=== PATIENT | female | born 1970 | race Caucasian/White ===

== ENCOUNTER 2018-08-26 13:44 | Emergency (ER) ==
--- OUTSIDE RECORDS SUMMARY | 2018-08-26 13:46 | XMS REPORT | Continuity of Care Document ---
Author Author Emilio ford Organization Interface Address Unknown Phone Unavailable Problems Problem Status Onset Date Classification Date Reported Comments Source M79.647 - PAIN IN LEFT FINGER(S) Active 04/11/2017 [facility] UNK Active 04/23/2015 [facility] Gallstones [facility] Medication Details Route Status Patient Instructions Ordering Provider Order Date Source Metoprolol 1 mg, Route: IVP, Q5Min, Dosing Weight 81.08, kg, PRN Other -See Comment, Start date: 04/28/15 12:41:00, Duration: 5 doses or times, Stop date: Limited # of times Inactive 04/28/2015 [facility] Oxycodone 5 mg, Route: PO, Drug form: TAB, Q4H, Dosing Weight 81.08, kg, PRN Pain Score 4-6, Start date: 04/28/15 12:41:00, Duration: 30 day, Stop date: 05/28/15 12:40:00 Inactive 04/28/2015 [facility] Glycopyrrolate 0.2 mg, Route: IVP, Q5Min, Dosing Weight 81.08, kg, PRN Bradycardia, Start date: 04/28/15 12:41:00, Duration: 3 doses or times, Stop date: Limited # of times Inactive 04/28/2015 [facility] Diphenhydramine 12.5 mg, Route: IVP, Drug form: INJ, Q6H, Dosing Weight 81.08, kg, PRN Itching, Start date: 04/28/15 12:41:00, Duration: 30 day, Stop date: 05/28/15 12:40:00 Inactive 04/28/2015 [facility] Hydralazine 10 mg, Route: IVP, Q20Min, Dosing Weight 81.08, kg, PRN Elevated BP, Start date: 04/28/15 12:41:00, Duration: 2 doses or times, Stop date: Limited # of times Inactive 04/28/2015 [facility] Ketorolac 30 mg, Route: IVP, ONCE, Dosing Weight 81.08, kg, Start date: 04/28/15 12:41:00, Duration: 1 doses or times, Stop date: 04/28/15 12:41:00 Inactive 04/28/2015 [facility] Naloxone 0.04 mg, Route: IVP, Q2MIN, Dosing Weight 81.08, kg, PRN Narcotic Reversal, Start date: 04/28/15 12:41:00, Duration: 8 doses or times, Stop date: Limited # of times Inactive 04/28/2015 [facility] Flumazenil 0.2 mg, Route: IVP, PRN, Dosing Weight 81.08, kg, PRN Benzodiazepine Reversal, Initial dose, Start date: 04/28/15 12:41:00, Duration: 30 day, Stop date: 05/28/15 12:40:00 Inactive 04/28/2015 [facility] Meperidine 12.5 mg, Route: IVP, Q30Min, Dosing Weight 81.08, kg, PRN Other -See Comment, For shivering, Start date: 04/28/15 12:41:00, Duration: 2 doses or times, Stop date: Limited # of times Inactive 04/28/2015 [facility] Hydromorphone 0.5 mg, Route: IVP, Q5Min, Dosing Weight 81.08, kg, PRN Pain Score 7-10, Start date: 04/28/15 12:41:00, Duration: 4 doses or times, Stop date: Limited # of times Inactive 04/28/2015 [facility] Fentanyl 25 microgram, Route: IVP, Q5Min, Dosing Weight 81.08, kg, PRN Pain Score 4-6, Start date: 04/28/15 12:41:00, Duration: 4 doses or times, Stop date: Limited # of times Inactive 04/28/2015 [facility] Morphine 2 mg, Route: IVP, Q5Min, Dosing Weight 81.08, kg, PRN Pain Score 4-6, Start date: 04/28/15 12:41:00, Duration: 5 doses or times, Stop date: Limited # of times Inactive 04/28/2015 [facility] Promethazine 6.25 mg, Route: IVPB, ONCE, Dosing Weight 81.08, kg, PRN Nausea & Vomiting, Start date: 04/28/15 12:41:00 Inactive 04/28/2015 [facility] Ondansetron 4 mg, Route: IVP, ONCE, Dosing Weight 81.08, kg, PRN Nausea & Vomiting, Start date: 04/28/15 12:41:00 Inactive 04/28/2015 [facility] Acetaminophen 300 MG / Codeine Phosphate 30 MG Oral Tablet [Tylenol with Codeine #3] 1 tab, PO, Q6H, PRN for pain, # 15 tab, 0 Refill(s) No Longer Active 04/28/2015 [facility] Calcium Chloride 0.0014 MEQ/ML / Potassium Chloride 0.004 MEQ/ML / Sodium Chloride 0.103 MEQ/ML / Sodium Lactate 0.028 MEQ/ML Injectable Solution 1,000 mL, Rate: 25 ml/hr, Infuse over: 40 hr, Route: IV, Dosing Weight 81.08 kg, Total Volume: 1,000, Start date: 04/27/15 8:19:00, Duration: 2 day, Stop date: 04/29/15 8:18:00 No Longer Active 04/27/2015 [facility] Calcium Chloride 0.0014 MEQ/ML / Potassium Chloride 0.004 MEQ/ML / Sodium Chloride 0.103 MEQ/ML / Sodium Lactate 0.028 MEQ/ML Injectable Solution 1,000 mL, Rate: 25 ml/hr, Infuse over: 40 hr, Route: IV, Dosing Weight 81.08 kg, Total Volume: 1,000, Start date: 04/27/15 8:18:00, Duration: 2 day, Stop date: 04/29/15 8:17:00 No Longer Active 04/27/2015 [facility] 84 HR Estradiol 0.83086 MG/HR Transdermal Patch [Minivelle] 1 patch, TOP, 0 Refill(s) Active 04/24/2015 [facility] progesterone 100 mg oral capsule 100 mg=1 cap, PO, Daily, # 30 cap, 1 Refill(s) Active 04/24/2015 [facility] Allergies, Adverse Reactions, Alerts Substance Category Reaction Severity Reaction type Status Date Reported Comments Source Immunizations Immunization Date Given Site Status Last Updated Comments Source Results Order Name Results Value Reference Range Date Interpretation Comments Source Spine lumbar series DX Spine lumbar series DX EXAM: XR LUMBAR SPINE 5 VIEWS DATE: 04/11/2017 4:05 PM CDT INDICATION: - M54.5 Low back pain COMPARISON: None available TECHNIQUE: AP, lateral, coned lateral, LPO and RPO radiographs of the lumbar spine FINDINGS: 5 nonrib bearing, lumbar-type vertebral bodies are present. Vertebral body heights are preserved. Mild disc height loss is noted at L4-L5 and L5-S1. Apparent disc height loss at T12-L1 is likely projectional. Please see x-ray thoracic spine performed concomitantly. Small anterior osteophytes are present at the thoracolumbar junction. Mild facet arthropathy is present in the lower lumbar spine. No soft tissue abnormality is identified. Surgical clips project over the expected location of the gallbladder fossa. IMPRESSION: 1. Moderate degenerative disc disease at the lumbosacral junction. 2. Mild lumbosacral facet arthropathy. 04/11/2017 - - This report was dictated by a College Athlete/Fellow. I have personally reviewed the images as well as the Resident's interpretation and agree with the findings. Read by: Yifan Schwartz MD Resident: Yifan Schwartz MD Dictated Date/time: 04/12/17 08:30 Electronically Signed by: Shane Ortega MD 04/12/17 16:26 FINAL REPORT [facility] Spine thoracic 3 views DX Spine thoracic 3 views DX EXAM: XR THORACIC SPINE 2 VIEWS DATE: 04/11/2017 4:06 PM CDT INDICATION: - M54.5 Low back pain COMPARISON: None available TECHNIQUE: AP and lateral radiographs of the thoracic spine FINDINGS: Vertebral body heights, disk heights and alignment are preserved. Small anterior osteophytes are noted in the lower cervical spine. No soft tissue abnormality is identified. Surgical clips project over the gallbladder fossa. IMPRESSION: 1. No acute abnormality. 2. Mild lower cervical spine degenerative disease. 04/11/2017 - - This report was dictated by a College Athlete/Fellow. I have personally reviewed the images as well as the Resident's interpretation and agree with the findings. Read by: Yifan Schwartz MD Resident: Yifan Schwartz MD Dictated Date/time: 04/12/17 08:33 Electronically Signed by: Shane Ortega MD 04/12/17 16:26 FINAL REPORT [facility] Hand 3 views Bilateral DX Hand 3 views Bilateral DX EXAM: XR BILATERAL HAND 3 VIEWS DATE: 04/11/2017 4:06 PM CDT INDICATION: - M79.645 Pain in left finger(s) COMPARISON: None available TECHNIQUE: PA, lateral and oblique radiographs of the bilateral hands. FINDINGS: No acute fracture or malalignment is identified. Joint spaces and bone mineral density are preserved. A punctate capsular calcification is noted at the interphalangeal joint of the thumb. No soft tissue abnormality is identified. IMPRESSION: No acute abnormality. 04/11/2017 - - This report was dictated by a College Athlete/Fellow. I have personally reviewed the images as well as the Resident's interpretation and agree with the findings. Read by: Yifan Schwartz MD Resident: Yifan Schwartz MD Dictated Date/time: 04/12/17 08:38 Electronically Signed by: Shane Ortega MD 04/12/17 16:29 FINAL REPORT [facility] CHEM PANEL Amylase Lvl 44 unit/L 25 - 115 04/24/2015 [facility] CHEM PANEL B/C Ratio 14 6 - 25 04/24/2015 [facility] CHEM PANEL Globulin 3.2 g/dL 2.0 - 4.0 04/24/2015 [facility] CHEM PANEL AGAP 10.1 meq/L 10.0 - 20.0 04/24/2015 [facility] CHEM PANEL A/G Ratio 1.2 0.7 - 1.6 04/24/2015 [facility] PANEL eGFR 89 mL/min/1.73m2 04/24/2015 Result Comment: The eGFR is calculated using the CKD-EPI formula. In most young, healthy individuals the eGFR will be >90 mL/min/1.73m2. The eGFR declines with age. An eGFR of 60-89 may be normal in some populations, particularly the elderly, for whom the CKD-EPI formula has not been extensively validated. Use of the eGFR is not recommended in the following populations: Individuals with unstable creatinine concentrations, including patients and those with serious co-morbid conditions. Patients with extremes in muscle mass or diet. The data above are obtained from the National Kidney Disease Education Program (NKDEP) which additionally recommends that when the eGFR is used in patients with extremes of body mass index for purposes of drug dosing, the eGFR should be multiplied by the estimated BMI. [facility] CHEM PANEL Glucose Lvl 81 mg/dL 70 - 99 04/24/2015 [facility] CHEM PANEL BUN 11 mg/dL 7 - 22 04/24/2015 [facility] PANEL Creatinine Lvl 0.8 mg/dL 0.5 - 1.4 04/24/2015 [facility]M PANEL Bili Total 0.4 mg/dL 0.2 - 1.3 04/24/2015 [facility]M PANEL Calcium Lvl 9.1 mg/dL 8.5 - 10.5 04/24/2015 [facility] PANEL Total Protein 7.1 g/dL 6.4 - 8.4 04/24/2015 [facility]M PANEL CO2 28 meq/L 24 - 32 04/24/2015 [facility] PANEL ALT 23 unit/L 0 - 65 04/24/2015 [facility] PANEL Alk Phos 59 unit/L 39 - 136 04/24/2015 [facility]M PANEL Albumin Lvl 3.9 g/dL 3.5 - 5.0 04/24/2015 [facility]M PANEL AST 14 unit/L 0 - 37 04/24/2015 [facility]M PANEL Chloride Lvl 105 meq/L 95 - 109 04/24/2015 [facility] PANEL Potassium Lvl 4.1 meq/L 3.5 - 5.1 04/24/2015 [facility]M PANEL Sodium Lvl 139 meq/L 135 - 145 04/24/2015 [facility] HEMATOLOGY Segs 57.5 % 45.0 - 75.0 04/24/2015 [facility] HEMATOLOGY Monocytes # 0.5 K/CMM 0.0 - 0.8 04/24/2015 [facility] HEMATOLOGY Eosinophils # 0.1 K/CMM 0.0 - 0.5 04/24/2015 [facility] HEMATOLOGY Basophils # 0.1 K/CMM 0.0 - 0.2 04/24/2015 [facility] HEMATOLOGY Eosinophils 1.9 % 0.0 - 4.0 04/24/2015 [facility] HEMATOLOGY Monocytes 8.7 % 2.0 - 12.0 04/24/2015 [facility] HEMATOLOGY Lymphocytes # 1.8 K/CMM 1.0 - 5.5 04/24/2015 [facility] HEMATOLOGY Segs-Bands # 3.4 K/CMM 1.5 - 8.1 04/24/2015 [facility] HEMATOLOGY Basophils 0.9 % 0.0 - 1.0 04/24/2015 [facility] HEMATOLOGY Lymphocytes 31.0 % 20.0 - 40.0 04/24/2015 [facility] HEMATOLOGY MPV 8.2 fL 7.4 - 10.4 04/24/2015 [facility] HEMATOLOGY MCV 94.0 fL 80.0 - 98.0 04/24/2015 [facility] HEMATOLOGY MCH 32.0 pg 27.0 - 31.0 04/24/2015 [facility] HEMATOLOGY Platelet 170 K/CMM 133 - 450 04/24/2015 [facility] HEMATOLOGY RDW 13.3 % 11.5 - 14.5 04/24/[address] [facility] MCHC 34.1 g/dL 32.0 - 36.0 04/24/2015 [facility] HEMATOLOGY Hgb 12.1 g/dL 12.0 - 16.0 04/24/2015 [facility] HEMATOLOGY RBC 3.79 M/CMM 4.20 - 5.40 04/24/2015 [facility] HEMATOLOGY WBC 5.9 K/CMM 3.7 - 10.4 04/24/[address] [facility] Hct 35.6 % 36.0 - 48.0 04/24/2015 [facility] URINE AND STOOL UA Urobilinogen <=1.0 mg/dL 0.1 - 1.0 04/24/2015 [facility] URINE AND STOOL UA Color Ltyellow 04/24/2015 [facility] URINE AND STOOL UA Blood Negative (04/24/15 11:24 AM) Negative 04/24/2015 [facility] URINE AND STOOL UA Bili Negative *NA* (04/24/15 11:24 AM) Negative 04/24/2015 [facility] URINE AND STOOL UA Ketones Negative mg/dL Negative mg/dL 04/24/2015 [facility] URINE AND STOOL UA Glucose Negative mg/dL Negative mg/dL 04/24/2015 [facility] URINE AND STOOL UA WBC null 0 - 5 04/24/2015 [facility] URINE AND STOOL UA Leuk Est Negative (04/24/15 11:24 AM) Negative 04/24/2015 [facility] URINE AND STOOL UA Nitrite Negative (04/24/15 11:24 AM) Negative 04/24/2015 [facility] URINE AND STOOL UA Sq Epi Occasional /LPF Few /LPF 04/24/2015 [facility] URINE AND STOOL UA Protein Negative mg/dL Negative mg/dL 04/24/2015 [facility] URINE AND STOOL UA pH 6.0 5.0 - 8.0 04/24/2015 [facility] URINE AND STOOL UA Spec Grav 1.003 <=1.030 04/24/2015 [facility] URINE AND STOOL UA Turbidity Clear (04/24/15 11:24 AM) Clear 04/24/2015 [facility] Vital Signs Vital Sign Value Date Comments Source Respitory Rate 18 04/28/2015 [facility] Systolic (mm Hg) 100 04/28/2015 [facility] Diastolic (mm Hg) 60 04/28/2015 [facility] Respitory Rate 18 04/28/2015 [facility] Systolic (mm Hg) 101 04/28/2015 [facility] Diastolic (mm Hg) 63 04/28/2015 [facility] Systolic (mm Hg) 99 04/28/2015 [facility] Diastolic (mm Hg) 58 04/28/2015 [facility] Respitory Rate 18 04/28/2015 [facility] Heart Rate 69 04/28/2015 [facility] Heart Rate 70 04/24/2015 [facility] Temperature Oral (F) 98.2 F 04/24/2015 [facility] Height 167.64 cm 04/24/2015 [facility] BMI Calculated 28.85 04/24/2015 [facility] Weight 81.08 04/24/2015 [facility] Encounters Location Location Details Encounter Type Encounter Number Reason For Visit Attending Provider ADM Date DC Date Status Source [facility] OBS Day Surgery [id number] Felipe Harrison 04/28/2015 04/28/2015 [facility] [id number] Liu David 04/11/2017 04/12/2017 [facility] Procedures Procedure Code Date Perfomer Comments Source section [id number] [facility] Operation [id number] [facility] section [id number] [facility] Operation [id number] [facility]
--- OUTSIDE RECORDS SUMMARY | 2018-08-26 13:47 | XMS REPORT | Summary of Care ---
Author Author [facility] Organization [facility] Address Unknown Phone Unavailable Encounter ALLA Tsang(SYLVESTER) [id number] Date(s): 04/28/15 - 04/28/15 [facility] [address] [place] [address]- [phone] Discharge Disposition: Home Attending Physician: Felipe Harrison MD Referring Physician: Felipe Harrison MD Vital Signs 1 2 3 Most recent to oldest [Reference Range]: 167.64 cm (04/24/15 10:50 AM) Height 1 2 3 Most recent to oldest [Reference Range]: 98.2 DegF (04/24/15 11:24 AM) Temperature Oral [96.4-99.1 DegF] 1 2 3 Most recent to oldest [Reference Range]: 100/60 mmHg (04/28/15 2:00 PM) 101/63 mmHg (04/28/15 1:45 PM) 99/58 mmHg (04/28/15 1:30 PM) Blood Pressure [90-140/60-90 mmHg] 1 2 3 Most recent to oldest [Reference Range]: 18 BRMIN (04/28/15 2:00 PM) 18 BRMIN (04/28/15 1:45 PM) 18 BRMIN (04/28/15 1:30 PM) Respiratory Rate [14-20 BRMIN] 1 2 3 Most recent to oldest [Reference Range]: 69 bpm (04/28/15 10:34 AM) 70 bpm (04/24/15 11:24 AM) Peripheral Pulse Rate [60-100 bpm] 1 2 3 Most recent to oldest [Reference Range]: 81.08 kg (04/24/15 10:50 AM) Weight 1 2 3 Most recent to oldest [Reference Range]: 28.85 m2 (04/24/15 10:50 AM) Body Mass Index Problem List Condition Effective Dates Status Health Status Informant Gallstones(Confirmed Active ) Allergies, Adverse Reactions, Alerts Substance Reaction Severity Status NKDA Active Medications diphenhydrAMINE 12.5 mg, Route: IVP, Drug form: INJ, Q6H, Dosing Weight 81.08, kg, PRN Itching, Start date: 04/28/15 12:41:00, Duration: 30 day, Stop date: 05/28/15 12:40:00 Start Date: 04/28/15 Stop Date: 04/28/15 Status: Discontinued fentaNYL 25 microgram, Route: IVP, Q5Min, Dosing Weight 81.08, kg, PRN Pain Score 4-6, St art date: 04/28/15 12:41:00, Duration: 4 doses or times, Stop date: Limited # of times Start Date: 04/28/15 Stop Date: 04/28/15 Status: Discontinued fentaNYL 50 microgram, Route: IVP, Q5Min, Dosing Weight 81.08, kg, PRN Pain Score 7-10, S tart date: 04/28/15 12:41:00, Duration: 2 doses or times, Stop date: Limited # o f times Start Date: 04/28/15 Stop Date: 04/28/15 Status: Discontinued flumazenil 0.2 mg, Route: IVP, PRN, Dosing Weight 81.08, kg, PRN Benzodiazepine Reversal, I nitial dose, Start date: 04/28/15 12:41:00, Duration: 30 day, Stop date: 5 12:40:00 Start Date: 04/28/15 Stop Date: 04/28/15 Status: Discontinued glycopyrrolate 0.2 mg, Route: IVP, Q5Min, Dosing Weight 81.08, kg, PRN Bradycardia, Start date: 04/28/15 12:41:00, Duration: 3 doses or times, Stop date: Limited # of times Start Date: 04/28/15 Stop Date: 04/28/15 Status: Discontinued hydrALAZINE 10 mg, Route: IVP, Q20Min, Dosing Weight 81.08, kg, PRN Elevated BP, Start date: 04/28/15 12:41:00, Duration: 2 doses or times, Stop date: Limited # of times Start Date: 04/28/15 Stop Date: 04/28/15 Status: Discontinued hydromorphone 0.5 mg, Route: IVP, Q5Min, Dosing Weight 81.08, kg, PRN Pain Score 7-10, Start d ate: 04/28/15 12:41:00, Duration: 4 doses or times, Stop date: Limited # of time s Start Date: 04/28/15 Stop Date: 04/28/15 Status: Discontinued ketOROLAC 30 mg, Route: IVP, ONCE, Dosing Weight 81.08, kg, Start date: 04/28/15 12:41:00, Duration: 1 doses or times, Stop date: 04/28/15 12:41:00 Start Date: 04/28/15 Stop Date: 04/28/15 Status: Discontinued Lactated Ringers Injection IV 1,000 mL 1,000 mL, Rate: 25 ml/hr, Infuse over: 40 hr, Route: IV, Dosing Weight 81.08 kg, Total Volume: 1,000, Start date: 04/27/15 8:19:00, Duration: 2 day, Stop date: 04/29/15 8:18:00 Start Date: 04/27/15 Stop Date: 04/28/15 Status: Discontinued Lactated Ringers Injection IV 1,000 mL 1,000 mL, Rate: 25 ml/hr, Infuse over: 40 hr, Route: IV, Dosing Weight 81.08 kg, Total Volume: 1,000, Start date: 04/27/15 8:18:00, Duration: 2 day, Stop date: 04/29/15 8:17:00 Start Date: 04/27/15 Stop Date: 04/28/15 Status: Discontinued meperidine 12.5 mg, Route: IVP, Q30Min, Dosing Weight 81.08, kg, PRN Other -See Comment, Fo r shivering, Start date: 04/28/15 12:41:00, Duration: 2 doses or times, Stop ericka e: Limited # of times Start Date: 04/28/15 Stop Date: 04/28/15 Status: Discontinued metoprolol 1 mg, Route: IVP, Q5Min, Dosing Weight 81.08, kg, PRN Other -See Comment, Start date: 04/28/15 12:41:00, Duration: 5 doses or times, Stop date: Limited # of cirilo es Start Date: 04/28/15 Stop Date: 04/28/15 Status: Discontinued Minivelle 0.0375 mg/24 hours twice weekly transdermal film, extended release 1 patch, TOP, 0 Refill(s) Start Date: 04/24/15 Status: Ordered morphine Sulfate 2 mg, Route: IVP, Q5Min, Dosing Weight 81.08, kg, PRN Pain Score 4-6, Start date : 04/28/15 12:41:00, Duration: 5 doses or times, Stop date: Limited # of times Start Date: 04/28/15 Stop Date: 04/28/15 Status: Discontinued morphine Sulfate 4 mg, Route: IVP, Q5Min, Dosing Weight 81.08, kg, PRN Pain Score 7-10, Start ericka e: 04/28/15 12:41:00, Duration: 3 doses or times, Stop date: Limited # of times Start Date: 04/28/15 Stop Date: 04/28/15 Status: Discontinued naloxone 0.04 mg, Route: IVP, Q2MIN, Dosing Weight 81.08, kg, PRN Narcotic Reversal, Star t date: 04/28/15 12:41:00, Duration: 8 doses or times, Stop date: Limited # of t imes Start Date: 04/28/15 Stop Date: 04/28/15 Status: Discontinued ondansetron 4 mg, Route: IVP, ONCE, Dosing Weight 81.08, kg, PRN Nausea & Vomiting, Start date: 04/28/15 12:41:00 Start Date: 04/28/15 Stop Date: 04/28/15 Status: Discontinued oxyCODONE 5 mg, Route: PO, Drug form: TAB, Q4H, Dosing Weight 81.08, kg, PRN Pain Score 4- 6, Start date: 04/28/15 12:41:00, Duration: 30 day, Stop date: 05/28/15 12:40:00 Start Date: 04/28/15 Stop Date: 04/28/15 Status: Discontinued oxyCODONE 10 mg, Route: PO, Drug form: TAB, Q4H, Dosing Weight 81.08, kg, PRN Pain Score 7 -10, Start date: 04/28/15 12:41:00, Duration: 30 day, Stop date: 05/28/15 12:40: 00 Start Date: 04/28/15 Stop Date: 04/28/15 Status: Discontinued progesterone 100 mg oral capsule 100 mg=1 cap, PO, Daily, # 30 cap, 1 Refill(s) Start Date: 04/24/15 Stop Date: 05/24/15 Status: Ordered promethazine 6.25 mg, Route: IVPB, ONCE, Dosing Weight 81.08, kg, PRN Nausea & Vomiting, Start date: 04/28/15 12:41:00 Start Date: 04/28/15 Stop Date: 04/28/15 Status: Discontinued Tylenol with Codeine #3 oral tablet 1 tab, PO, Q6H, PRN for pain, # 15 tab, 0 Refill(s) Start Date: 04/28/15 Stop Date: 04/29/15 Status: Completed Results ELECTROLYTES Most recent to 1 oldest [Reference Range]: Sodium Lvl [135-145 139 mEq/L mEq/L] (04/24/15 11:24 AM) Potassium Lvl 4.1 mEq/L [3.5-5.1 mEq/L] (04/24/15 11:24 AM) Chloride Lvl [95-109 105 mEq/L mEq/L] (04/24/15 11:24 AM) CO2 [24-32 mEq/L] 28 mEq/L (04/24/15 11:24 AM) AGAP [10.0-20.0 10.1 mEq/L mEq/L] (04/24/15 11:24 AM) CHEM PANEL Most recent to 1 oldest [Reference Range]: Creatinine Lvl 0.8 mg/dL [0.5-1.4 mg/dL] (04/24/15 11:24 AM) eGFR 89 mL/min/1.73m2 1 *NA* (04/24/15 11:24 AM) BUN [7-22 mg/dL] 11 mg/dL (04/24/15 11:24 AM) B/C Ratio [6-25] 14 (04/24/15 11:24 AM) Glucose Lvl [70-99 81 mg/dL mg/dL] (04/24/15 11:24 AM) Total Protein 7.1 g/dL [6.4-8.4 g/dL] (04/24/15 11:24 AM) Albumin Lvl [3.5-5.0 3.9 g/dL g/dL] (04/24/15 1124 AM) Globulin [2.0-4.0 3.2 g/dL g/dL] (04/24/15 11:24 AM) A/G Ratio [0.7-1.6] 1.2 (04/24/15 11:24 AM) Calcium Lvl 9.1 mg/dL [8.5-10.5 mg/dL] (04/24/15 11:24 AM) ALT [0-65 unit/L] 23 unit/L (04/24/15 11:24 AM) AST [0-37 unit/L] 14 unit/L (04/24/15 11:24 AM) Alk Phos [39-136 59 unit/L unit/L] (04/24/15 11:24 AM) Bili Total [0.2-1.3 0.4 mg/dL mg/dL] (04/24/15 11:24 AM) Amylase Lvl [25-115 44 unit/L unit/L] (04/24/15 11:24 AM) 1Result Comment: The eGFR is calculated using the [...] from the National Kid[employer] Education Program ( NKDEP) which additionally recommends that when the eGFR is used in patients with extremes of body mass index for purposes of drug dosing, the eGFR should be mul tiplied by the estimated BMI. URINE AND STOOL Most recent to 1 oldest [Reference Range]: UA Turbidity [Clear] Clear (04/24/15 11:24 AM) UA Color Ltyellow *NA* (04/24/15 11:24 AM) UA pH [5.0-8.0] 6.0 (04/24/15 11:24 AM) UA Spec Grav 1.003 [<=1.030] (04/24/15 11:24 AM) UA Glucose [Negative Negative mg/dL mg/dL] *NA* (04/24/15 11:24 AM) UA Blood [Negative] Negative (04/24/15 11:24 AM) UA Ketones [Negative Negative mg/dL mg/dL] *NA* (04/24/15 11:24 AM) UA Protein [Negative Negative mg/dL mg/dL] (04/24/15 11:24 AM) UA Urobilinogen <=1.0 mg/dL [0.1-1.0 mg/dL] *NA* (04/24/15 11:24 AM) UA Bili [Negative] Negative *NA* (04/24/15 11:24 AM) UA Leuk Est Negative [Negative] (04/24/15 11:24 AM) UA Nitrite Negative [Negative] (04/24/15 11:24 AM) UA WBC [0-5 /HPF] <1 /HPF (04/24/15 11:24 AM) UA Sq Epi [Few /LPF] Occasional /LPF *NA* (04/24/15 11:24 AM) HEMATOLOGY Most recent to 1 oldest [Reference Range]: WBC [3.7-10.4 K/CMM] 5.9 K/CMM (04/24/15 11:24 AM) RBC [4.20-5.40 3.79 M/CMM M/CMM] *LOW* (04/24/15 11:24 AM) Hgb [12.0-16.0 g/dL] 12.1 g/dL (04/24/15 11:24 AM) Hct [36.0-48.0 %] 35.6 % *LOW* (04/24/15 11:24 AM) MCV [80.0-98.0 fL] 94.0 fL (04/24/15 11:24 AM) MCH [27.0-31.0 pg] 32.0 pg *HI* (04/24/15 11:24 AM) MCHC [32.0-36.0 34.1 g/dL g/dL] (04/24/15 11:24 AM) RDW [11.5-14.5 %] 13.3 % (04/24/15 11:24 AM) Platelet [133-450 170 K/CMM K/CMM] (04/24/15 1124 AM) MPV [7.4-10.4 fL] 8.2 fL (04/24/15 AM) Segs [45.0-75.0 %] 57.5 % (04/24/15 AM) Lymphocytes 31.0 % [20.0-40.0 %] (04/24/1524 AM) Monocytes [2.0-12.0 8.7 % %] (04/24/15 11 AM) Eosinophils [0.0-4.0 1.9 % %] (04/24/15 AM) Basophils [0.0-1.0 0.9 % %] (04/24/1524 AM) Segs-Bands # 3.4 K/CMM [1.5-8.1 K/CMM] (04/24/15 11:24 AM) Lymphocytes # 1.8 K/CMM [1.0-5.5 K/CMM] (04/24/15 11:24 AM) Monocytes # [0.0-0.8 0.5 K/CMM K/CMM] (04/24/15 11:24 AM) Eosinophils # 0.1 K/CMM [0.0-0.5 K/CMM] (04/24/15 11:24 AM) Basophils # [0.0-0.2 0.1 K/CMM K/CMM] (04/24/15 11:24 AM) Immunizations No data available for this section Procedures Procedure Date Related Diagnosis Body Site section Operation Social History Social History Type Response Smoking Status Never smoker; Exposure to Tobacco Smoke None; Cigarette Smoking Last 365 Days No; Reg Smoking Cessation Counseling No Assessment and Plan No data available for this section
--- OUTSIDE RECORDS SUMMARY | 2018-08-26 13:47 | XMS REPORT | Summary of Care ---
Author Author [facility] Outpatient [facility] Address Unknown Phone Unavailable Encounter [facility] Encntr_alibobby(FIN) [id number] Date(s): 04/11/17 - 04/11/17 [facility] Outpatient Imaging [facility] [address] [facility], [address] [place] [phone] Discharge Disposition: Home or Self Care Attending Physician: Liu David MD Vital Signs No data available for this section Problem List Condition Effective Dates Status Health Status Informant Gallstones(Confirmed Active ) Allergies, Adverse Reactions, Alerts Substance Reaction Severity Status NKDA Active Medications No data available for this section Results No data available for this section Immunizations No data available for this section Procedures Procedure Date Related Diagnosis Body Site section Operation Social History Social History Type Response Smoking Status Never smoker; Exposure to Tobacco Smoke None; Cigarette Smoking Last 365 Days No; Reg Smoking Cessation Counseling No Assessment and Plan No data available for this section
== END 2018-08-26 13:52 | disposition short-term general hospital (02) ==
LOC: FSED 13:44
DX: R07.81 Pleurodynia (principal); Z53.21 Procedure and treatment not carried out due to patient leaving prior to being seen by health care provider